=== PATIENT | male | born 1985 | race Caucasian/White ===

== ENCOUNTER 2017-09-13 09:18 | Emergency (ER) | payer BC, MEDICAID ==
[2017-09-13 09:52] VITALS: TEMP 98.4
--- NOTE | 2017-09-13 10:53 | C.PDOC ---
History Of Present Illness 32-year-old male, whose PMHx includes Bipolar Disorder, is brought to the ED by ambulance for evaluation of anxiety. Patient admits to drinking alcohol, smoking marijuana, using crystal meth and LSD prior to arrival and states he now feels nervous and anxious. Patient is not seeking detox. He denies fever, chills, chest pain, shortness of breath, abdominal pain, vomiting, suicidal/ homicidal ideation at this time. Time Seen by Provider: 09/13/17 09:57 Chief Complaint (Nursing): Anxiety History Per: Patient History/Exam Limitations: no limitations Onset/Duration Of Symptoms: Hrs Current Symptoms Are (Timing): Still Present Suicide/Self Injury Attempted (Context): None Modifying Factor(s): Alcohol, Other (marijuana, crystal meth, LSD) Associated Symptoms: Anxiety. denies: Suicidal Thoughts, Suicidal Plan Involuntary Hold By: None Recent travel outside of the [place]: No Additional History Per: Patient, EMS Past Medical History Reviewed: Historical Data, Nursing Documentation, Vital Signs Vital Signs: Last Vital Signs Temp 98.4 F 09/13/17 11:41 Pulse 92 H 09/13/17 11:41 Resp 18 09/13/17 11:41 BP 135/91 H 09/13/17 11:41 Pulse Ox 96 09/13/17 15:13 - Medical History PMH: Bipolar Disorder, Depression Surgical History: No Surg Hx Family History: States: Unknown Family Hx - Social History Hx Alcohol Use: Yes Hx Substance Use: Yes - Immunization History Hx Tetanus Toxoid Vaccination: No Hx Influenza Vaccination: No Hx Pneumococcal Vaccination: No Review Of Systems Psych: Positive for: Anxiety. Negative for: Suicidal ideation Physical Exam - Physical Exam Appears: Non-toxic, No Acute Distress, Other (anxious, pacing ) Skin: Normal Color, Warm, Dry Head: Atraumatic, Normacephalic Eye(s): bilateral: Normal Inspection, EOMI Nose: Normal Oral Mucosa: Moist Neck: Normal ROM, Supple Chest: Symmetrical, No Deformity, No Tenderness Cardiovascular: Rhythm Regular Respiratory: Normal Breath Sounds, No Rales, No Rhonchi, No Wheezing, Other ( speaking in full sentences) Gastrointestinal/Abdominal: Soft, No Tenderness Back: No Vertebral Tenderness Extremity: Normal ROM, Capillary Refill (less than 2 seconds ) Neurological/Psych: Oriented x3 Gait: Steady ED Course And Treatment O2 Sat by Pulse Oximetry: 96 (on RA) Pulse Ox Interpretation: Normal Progress Note: On re-examination, patient is resting comfortably, showing no signs of distress and reports an improvement in his symptoms. PT states, "I feel fine now, i want to go home. " Patient is tolerating PO intake and is stable for discharge with his friends, who will pick him up from the ED. Case discussed by Dr Sotoamyor, agreed upon plan and discharge. Disposition - Disposition Disposition: HOME/ ROUTINE Disposition Time: 10:52 Condition: STABLE Additional Instructions: When you are ready for detox, call [phone]. Instructions: Drug Abuse and Drug Addiction (DC) Forms: [facility] (Estonian) - Clinical Impression Clinical Impression: Drug abuse, Anxiety - PA / TELEPHONE SERVICE REPRESENTATIVE / Resident Statement MD/DO has reviewed & agrees with the documentation as recorded. - Scribe Statement The provider has reviewed the documentation as recorded by the Scribe (Thuy Mora) All medical record entries made by the Scribe were at my direction and personally dictated by me. I have reviewed the chart and agree that the record accurately reflects my personal performance of the history, physical exam, medical decision making, and the department course for this patient. I have also personally directed, reviewed, and agree with the discharge instructions and disposition.
[2017-09-13 11:42] VITALS: BP 135/91; PULSE 92; RESP 18
[2017-09-13 15:09] VITALS: O2SAT 96
== END 2017-09-13 11:46 | disposition home or self-care (01) ==
LOC: C.ER 09:18
DX: F41.9 Anxiety disorder, unspecified (principal); F19.10 Other psychoactive substance abuse, uncomplicated

== ENCOUNTER 2018-03-12 18:05 | Inpatient (IN) | payer MEDICAID ==
[2018-03-12] MEDS ORDERED: Naloxone 0.4 mg/ml Inj (Adult) ONE (18:40)
[2018-03-12] MEDS ORDERED: Naloxone 0.4 mg/ml Inj (Adult) IVP ONE (18:47)
--- NOTE | 2018-03-12 19:20 | C.PDOC ---
History Of Present Illness 32 year old male presents to the ER as a prescreen for heroin detox. Patient last used heroin one hour [employer], in the ER he is lethargic, 0.4 narcan administered, he is now alert and conscious. Denies any complaints at this time. Chief Complaint (Nursing): Substance Abuse History Per: Patient History/Exam Limitations: no limitations Onset/Duration Of Symptoms: Hrs Current Symptoms Are (Timing): Still Present Suicide/Self Injury Attempted (Context): None Modifying Factor(s): Other (Heroin) Associated Symptoms: denies: Depression, Suicidal Thoughts Involuntary Hold By: None Recent travel outside of the [place]: No Past Medical History Reviewed: Historical Data, Nursing Documentation, Vital Signs Vital Signs: Last Vital Signs Temp 98.2 F 03/12/18 18:19 Pulse 91 H 03/12/18 19:05 Resp 13 03/12/18 19:05 BP 115/61 03/12/18 19:05 Pulse Ox 96 03/12/18 19:05 - Medical History PMH: Bipolar Disorder, Depression Family History: States: Unknown Family Hx - Social History Hx Alcohol Use: Yes Hx Substance Use: Yes - Immunization History Hx Tetanus Toxoid Vaccination: No Hx Influenza Vaccination: No Hx Pneumococcal Vaccination: No Review Of Systems Constitutional: Negative for: Fever, Chills Cardiovascular: Negative for: Chest Pain, Palpitations Respiratory: Negative for: Cough, Shortness of Breath Gastrointestinal: Negative for: Nausea, Vomiting Neurological: Negative for: Weakness, Numbness Physical Exam - Physical Exam Appears: Non-toxic Skin: Normal Color, Warm, Dry Head: Atraumatic, Normacephalic Eye(s): bilateral: Normal Inspection Oral Mucosa: Moist Neck: Normal, Supple Chest: Symmetrical, No Tenderness Cardiovascular: Rhythm Regular Respiratory: Normal Breath Sounds, No Rales, No Rhonchi, No Wheezing Gastrointestinal/Abdominal: Soft, No Tenderness Back: No CVA Tenderness Extremity: Normal ROM (x4) Neurological/Psych: Oriented x3, Normal Speech, Other (No focal deficit) ED Course And Treatment - Laboratory Results Result Diagrams: 03/12/18 19:24 03/12/18 19:24 O2 Sat by Pulse Oximetry: 96 (room air) Pulse Ox Interpretation: Normal Progress Note: Blood work and urinalysis ordered. Narcan administered. Crisis notified. Disposition Discussed With : Miri Carrasco Doctor Will See Patient In The: Hospital Counseled Patient/Family Regarding: Diagnosis - Disposition Disposition: HOSPITALIZED Disposition Time: 01:01 Condition: STABLE Forms: [facility] (Pakistani) - POA Present On Arrival: None - Clinical Impression Clinical Impression: Opiate use - Scribe Statement The provider has reviewed the documentation as recorded by the Scribe Jun George All medical record entries made by the Scribe were at my direction and personally dictated by me. I have reviewed the chart and agree that the record accurately reflects my personal performance of the history, physical exam, medical decision making, and the department course for this patient. I have also personally directed, reviewed, and agree with the discharge instructions and di sposition.
[2018-03-12 19:31] LABS: BASO % 0.6 % (0.0-2.0); EOS # 0.2 K/uL (0.0-0.7); HEMOGLOBIN 14.3 g/dL (12.0-18.0); LYMPH # 2.1 K/uL (1.0-4.3); LYMPH % 26.8 % (20.0-40.0); MEAN CELL VOLUME 90.8 fL (80.0-94.0); MEAN CORPUSCULAR HEMOGLOBIN 31.5 pg (27.0-31.0); MEAN CORPUSCULAR HGB CONC 34.7 g/dL (33.0-37.0); MEAN PLATELET VOLUME 8.3 fL (7.2-11.7); MONO # 0.5 K/uL (0.0-0.8); MONO % 6.9 % (0.0-10.0); NEUT # 4.8 K/uL (1.8-7.0); NEUT % 62.7 % (50.0-75.0); RBC 4.55 Mil/uL (4.40-5.90); RED CELL DISTRIBUTION WIDTH 12.5 % (11.5-14.5); WHITE BLOOD COUNT 7.6 K/uL (4.8-10.8)
[2018-03-12 19:53] LABS: ALB/GLOB RATIO 1.7 (1.0-2.1); ALBUMIN 4.7 g/dL (3.5-5.0); ALT/SGPT 76 U/L (21-72); AST/SGOT 65 U/L (17-59); BLOOD UREA NITROGEN 24 mg/dL (9-20); CALCIUM 9.2 mg/dl (8.6-10.4); GFR NON-AFRICAN AMERICAN > 60
[2018-03-12 22:21] LABS: BARBITURATES, UR NEGATIVE (NEGATIVE); BENZODIAZEPINES, UR NEGATIVE (NEGATIVE); OPIATES, UR NEGATIVE (NEGATIVE); PHENCYCLIDINE, UR NEGATIVE (NEGATIVE)
[2018-03-12 22:58] LABS: URINE BACTERIA RARE (<OCC); URINE BILIRUBIN NEGATIVE (NEGATIVE); URINE BLOOD NEGATIVE (NEGATIVE); URINE CLARITY Clear (Clear); URINE COLOR Yellow (YELLOW); URINE GLUCOSE (UA) NORMAL (Normal); URINE LEUKOCYTE ESTERASE NEG Leu/uL (Negative); URINE PROTEIN NEGATIVE (NEGATIVE); URINE UROBILINOGEN NORMAL mg/dL (0.2-1.0)
[2018-03-12 23:41] LABS: SQUAMOUS EPITHIAL < 1 /hpf (0-5); URINE BILIRUBIN NEGATIVE (NEGATIVE); URINE BLOOD NEGATIVE (NEGATIVE); URINE CLARITY Clear (Clear); URINE COLOR Yellow (YELLOW); URINE GLUCOSE (UA) NORMAL (Normal); URINE LEUKOCYTE ESTERASE NEG Leu/uL (Negative); URINE PROTEIN NEGATIVE (NEGATIVE)
[2018-03-13 00:02] LABS: BARBITURATES, UR NEGATIVE (NEGATIVE); BENZODIAZEPINES, UR NEGATIVE (NEGATIVE); PHENCYCLIDINE, UR NEGATIVE (NEGATIVE)
[2018-03-13 00:32] LABS: OPIATES, UR POSITIVE (NEGATIVE)
--- NOTE | 2018-03-13 03:44 | PCM.BM ---
<David Herrera - Last Filed: 03/13/18 03:42> Treatment Plan Problems - Problems identified on initial assessmt Opiates Abuse Date Initiated: 03/13/18 Time Initiated: 01:45 Assessment reference: NA Status: Active Treatment assets and liabiliti Patient Assests: resourceful, physically healthy, good support system Patient Liabilities: relationship conflicts, substance abuse (Opiates, Amphetamines) - Milieu Protocol Maintain good personal hygiene: daily Encourage regular showers, daily Remind patient to perform daily oral care, every shift Assist patient to perform ADL's Conduct patient checks and document Observation sheet: Q15 minutes Maintain personal safety: every shift Educate patient to report safety concerns to staff, every shift Monitor environment for contraband/sharps Medication safety: Monitor for expected outcome, potential side effects: every shift, Assess barriers to learning: every shift, Assess readiness for medication education: every shift <Miri Carrasco - Last Filed: 03/13/18 13:15> - Diagnosis (1) Methamphetamine use disorder, severe Status: Acute Interventions: 03/13/18 13:16 * Assess 7x/week regarding severity of withdrawal * Educate regarding risks, benefits, side effects and alternatives of medications * Use Motivational Interviewing for abstinence * Use CBT for relapse prevention * Medication management for withdrawal symptoms * Encourage medication assisted treatment * (2) Opiate use Status: Acute Interventions: 03/13/18 13:16 * Assess 7x/week regarding severity of withdrawal * Educate regarding risks, benefits, side effects and alternatives of medications * Use Motivational Interviewing for abstinence * Use CBT for relapse prevention * Medication management for withdrawal symptoms * Encourage medication assisted treatment * <Niru Knox - Last Filed: 03/13/18 13:33> Family Contact Family involvement: Family/SO is involved Family contact name: AA sponsor Family contacted how many times per week?: 2 - Goals for Treatment Patient goals for treatment: Complete detox and discuss aftercare options with counseling staff and AA sponsor. Discharge/Continuing Care - Education Needs Education Needs: Patient Medication, Patient Diagnosis/Disease Process, Patient Coping Skills, Patient Anger Management skills, Patient Placement options, Patient Community resources, Patient Health Practices/Safety (overdose risks) - Discharge Discharge Criteria: No longer exhibiting s/s of withdrawal, Reduction of target symptoms Discharge to:: Other - Additional Comments 03/13/18 13:33 To Be Determined. Pt. is unsure as of this writing. - Treatment Team Participation Patient/Family/SO Statement: 03/13/18 13:33 "I don't know what I wanna do. I'll do whatever my sponsor says..." Discussed with Family/SO: No Was Patient/Family/SO present at Treatment Team Meeting: Yes
[2018-03-13] MEDS ORDERED: Aluminum Hydroxide/Magnesium Hydroxide Susp (30 mL) PO PRN (09:58)
--- NOTE | 2018-03-13 13:24 | PCM.PSYCH ---
Initial Psychiatric Evaluation - Initial Psychiatric Evaluation Type of Admission: Voluntary Legal Status: Capacity Chief Complaint (in patient's own words): "detox" History of Present Illness and Precipitating Events: the patient is seen, chart reviewed and case discussed. This is a 22-year-old [place] male, single with no child, lives alone, works in real estate. The patient came to ER with a friend for admission for heroin detox as well as excessive crystal meth use. The patient reports that his been using heroin for the past 15 years and he averages around 15 bags, IV, and last night he had to be Narcan'ed because he was in OD. He admits to having had 4 or 5 ODs in the past he was also in detox and rehabilitation more than 15 times and last time was in September. Patient reports that he was in a long-term rehabilitation and that the longest sobriety he had was about 10 months few years ago in [facility]. Patient also uses methamphetamine, Xanax on and off, alcohol "a lot" and he had used many others in the past. He denies DTs or seizures from alcohol withdrawal but he reports significant withdrawal symptoms. He is not sure about his average because he drinks "a lot." Past psych history: He was diagnosed with bipolar disorder and had been hospitalized "many times" but the last time was several years ago. He currently feels irritable but not manicky. He denies suicidal ideation. He had one suicide "long ago" Family psych history: Denied Medical history: Denied Current Medications: Active Medications Generic Name Dose Route Start Last Admin Trade Name Freq PRN Reason Stop Dose Admin Al Hydrox/Mg Hydrox/Simethicone 30 ml 03/13/18 09:58 Maalox 30 Ml PO TID PRN Indigestion / Heartburn Clonidine HCl 0.1 mg 03/13/18 01:58 Catapres PO Q6 PRN s/s of withdrawal cows=5 Dicyclomine HCl 10 mg 03/13/18 01:52 Bentyl PO Q6 PRN Muscle spasm Gabapentin 300 mg 03/13/18 10:00 03/13/18 10:32 Neurontin PO 300 mg BID LYDIA Administration Hydroxyzine HCl 25 mg 03/13/18 01:51 Atarax PO Q6 PRN Anxiety Ibuprofen 600 mg 03/13/18 01:51 Motrin Tab PO Q6 PRN Pain, moderate (4-7) Influenza Virus Vaccine 60 mcg 03/16/18 10:00 Fluzone Quad [id number] IM 03/16/18 10:01 .ONCE ONE Loperamide HCl 2 mg 03/13/18 09:58 Imodium PO Q8 PRN Diarrhea Ondansetron HCl 4 mg 03/13/18 01:52 Zofran Tab PO Q6 PRN Nausea/Vomiting Ondansetron HCl 4 mg 03/13/18 14:00 Zofran Tab PO Q8 PRN Nausea/Vomiting Pneumococcal Polyvalent Vaccine 0.5 ml 03/16/18 10:00 Pneumovax 23 Vaccine IM 03/16/18 10:01 .ONCE ONE Quetiapine Fumarate 50 mg 03/13/18 02:15 03/13/18 10:32 Seroquel PO 50 mg DAILY LYDIA Administration Trazodone HCl 50 mg 03/13/18 01:53 Desyrel PO HS PRN Insomnia Past Psychiatric History - Past Psychiatric History Previous Treatment History: Intensive Outpatient Pertinent Medical Hx (Current Medical&Sleep Prob, Allergies): Allergies Allergy/AdvReac Type Severity Reaction Status Date / Time carbamazepine [From Tegretol] Allergy Verified 03/12/18 18:25 No Known Home Med 09/13/17 Review of Systems - Neurological Neurological: Tremor - Psychiatric Psychiatric: Abnormal Sleep Pattern, Anxiety, Depression, Difficulty Concentrating, Irritability. absent: Hallucinations, Homicidal Ideation, Suicidal Ideation Mental Status Examination - Personal Presentation Personal Presentation: Looks stated age - Affect Affect: Constricted - Motor Activity Motor Activity: Calm - Reliability in Providing Information Reliability in Providing Information: Good - Speech Speech: Organized - Mood Mood: Anxious - Formal Thought Process Formal Thought Process: No Impairment - Cognitive Functions Orientation: Person, Place, Situation, Time Sensorium: Alert Attention/Concentration: Easily distracted Estimate of Intelligence: Average Judgement: Intact, as evidence by: Insight regarding need for hospitalization Memory: Recent intact, as evidence by: Ability to recall events of the day, Rem ote intact, as evidenced by: Abilit to recall sig. life events - Risk Risk: Withdrawal, Diminished functioning - Strength & Assets Inventory Strength & Assets Inventory: Cooperative - Limitations Limitations: Living alone, Other DSM 5 DX - DSM 5 DSM 5 Diagnosis: opioid withdrawal Opioid use disorder, severe Methamphetamine use disorder, severe Alcohol use disorder, severe Sedative hypnotic or anxiolytic use disorder, moderate Bipolar disorder unspecified Personality disorder, unspecified - Recommended/Plan of Treatment Treatment Recommendations and Plan of Treatment: Taper with methadone and librium HIV testing per his request Gabapentin for augmentation As needed medications All risks, benefits and alternatives of the meds discussed, and the pt agreed and understood. Attend groups and activities Supportive therapy and psychoeducation [place] for abstinence CBT for relapse prevention Encourage MAT Refer to rehab or IOP, and self-help groups Teach healthy lifestyle methods, i.e. diet, exercise, meditation Smoking cessation with [place] Nicotine patch if needed 34 min Projected ELOS: 4 - 5 days Prognosis: good with treatment
[2018-03-15] MEDS ORDERED: Benzocaine/Menthol (Cepacol) Lozenge MT PRN (11:12)
[2018-03-15] MEDS ORDERED: guaiFENesin 200 mg/10 ml Syrup UD PO PRN (11:12)
--- NOTE | 2018-03-15 13:18 | PCM.PYCHPN ---
Psychiatric Progress Note - Psychiatric Progress Note Patient seen today, length of contact: `15 min Patient Chief Complaint: "I am not well" Problems Identified/Issues Discussed: The pt is seen, chart reviewed, case discussed with staff. The pt is compliant with medications and reports no side-effects. Symptoms are improving but needs more time to stabilize. He was in withdrawal (COWS>8) and methadone (his choice - vs. subutex) started Pt attends groups and activities. Support given, psycho-education provided. After care discussed. Medication Change: Yes (detox changes daily) Medical Record Reviewed: Yes Mental Status Examination - Cognitive Function Orientation: Person, Place, Situation, Time Memory: Intact Attention: WNL Concentration: Poor Association: WNL Fund of Knowledge: WNL - Mood Mood: Anxious - Affect Affect: Constricted - Speech Speech: Appropriate - Formal Thought Process Formal Thought Process: No Impairment - Suicidal Ideation Suicidal Ideation: No - Homicidal Ideation Homicidal Ideation: No Goal/Treatment Plan - Goal/Treatment Plan Need for Continued Stay: Discharge may exacerbated symptoms, Severe functional impairment Progress Toward Problem(s) and Goals/Treatment Plan: Taper with methadone and librium if needed HIV testing per his request Gabapentin for augmentation As needed medications All risks, benefits and alternatives of the meds discussed, and the pt agreed and understood. Attend groups and activities Supportive therapy and psychoeducation [place] for abstinence CBT for relapse prevention Encourage MAT Refer to rehab or IOP, and self-help groups Teach healthy lifestyle methods, i.e. diet, exercise, meditation Smoking cessation with [place] Nicotine patch if needed
[2018-03-16] MEDS ORDERED: Pneumococcal 23-Valent Vaccine IM ONE (10:00)
[2018-03-16] MEDS ORDERED: Influenza Vaccine 60 MCG/0.5 ML SYR (3 yr & up) IM ONE (10:00)
--- NOTE | 2018-03-16 23:11 | PCM.PYCHPN ---
Psychiatric Progress Note - Psychiatric Progress Note Patient seen today, length of contact: `15 min Patient Chief Complaint: "I am not well" Problems Identified/Issues Discussed: The pt is seen, chart reviewed, case discussed with staff. The pt is compliant with medications and reports no side-effects. Symptoms are improving but needs more time to stabilize. He was in withdrawal (COWS>8) and methadone (his choice - vs. subutex) started Pt attends groups and activities. Support given, psycho-education provided. After care discussed. Medication Change: Yes (detox changes daily) Medical Record Reviewed: Yes Mental Status Examination - Cognitive Function Orientation: Person, Place, Situation, Time Memory: Intact Attention: WNL Concentration: Poor Association: WNL Fund of Knowledge: WNL - Mood Mood: Anxious - Affect Affect: Constricted - Speech Speech: Appropriate - Formal Thought Process Formal Thought Process: No Impairment - Suicidal Ideation Suicidal Ideation: No - Homicidal Ideation Homicidal Ideation: No Goal/Treatment Plan - Goal/Treatment Plan Need for Continued Stay: Discharge may exacerbated symptoms, Severe functional impairment Progress Toward Problem(s) and Goals/Treatment Plan: Taper with methadone and librium if needed HIV testing per his request Gabapentin for augmentation As needed medications All risks, benefits and alternatives of the meds discussed, and the pt agreed and understood. Attend groups and activities Supportive therapy and psychoeducation [place] for abstinence CBT for relapse prevention Encourage MAT Refer to rehab or IOP, and self-help groups Teach healthy lifestyle methods, i.e. diet, exercise, meditation Smoking cessation with [place] Nicotine patch if needed
[2018-03-17 06:28] VITALS: O2SAT 96
--- NOTE | 2018-03-17 08:53 | PCM.PYCHDC ---
Mental Status Examination - Mental Status Examination Orientation: Person Discharge Summary - Discharge Note Consultations:: List each consultation separately and include: 1. Reason for request. 2. Findings. 3. Follow-up Summary of Hospital Course include:: 1. Description of specific treatment plan utilized for patients during their course of treatmen. 2. Summarize the time- course for resolution of acute symptoms and/or regressed behaviors. 3. Describe issues identified and worked on during hospitalization. 4. Describe medication utilized. 5. Describe medical problems identified and treated. 6. Reassessment of suicide risk Summary of Hospital Course: the patient is seen, chart reviewed and case discussed. 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 The patient reports that his been using heroin for the past 15 years and he averages around 15 bags, IV, and last night he had to be Narcan'ed because he was in OD. He admits to having had 4 or 5 ODs in the past he was also in detox and rehabilitation more than 15 times and last time was in September. Patient reports that he was in a long-term rehabilitation and that the longest sobriety he had was about 10 months few years ago in [facility]. Patient also uses methamphetamine, Xanax on and off, alcohol "a lot" and he had used many others in the past. He denies DTs or seizures from alcohol withdrawal but he reports significant withdrawal symptoms. He is not sure about his average because he drinks "a lot." Past psych history: He was diagnosed with bipolar disorder and had been hospitalized "many times" but the last time was several years ago. He currently feels irritable but not manicky. He denies suicidal ideation. He had one suicide "long ago" Family psych history: Denied Medical history: Denied He will go to - risks of poor follow up discussed. - Diagnosis (1) Methamphetamine use disorder, severe Current Visit: Yes Status: Acute (2) Opiate use Current Visit: Yes Status: Acute - Final Diagnosis (DSM 5) Condition upon Discharge: STABLE Disposition: HOME/ ROUTINE Follow-up Treatment Plan: Taper with methadone and librium if needed HIV testing per his request Gabapentin for augmentation As needed medications All risks, benefits and alternatives of the meds discussed, and the pt agreed and understood. Attend groups and activities Supportive therapy and psychoeducation [place] for abstinence CBT for relapse prevention Encourage MAT Refer to rehab or IOP, and self-help groups Teach healthy lifestyle methods, i.e. diet, exercise, meditation Smoking cessation with [place] Nicotine patch if needed Prescriptions/Medication Reconciliation: Escitalopram [Lexapro] 10 mg PO DAILY #30 tab Gabapentin [Neurontin] 300 mg PO TID #90 cap hydrOXYzine HCl [Atarax] 25 mg PO BID PRN #60 tab PRN Reason: Anxiety QUEtiapine [SEROquel] 50 mg PO HS #30 tab traZODone [Desyrel] 50 mg PO HS PRN #30 tab PRN Reason: Insomnia
[2018-03-17 10:03] VITALS: BP 92/68; PULSE 66; RESP 18; TEMP 97.6
== END 2018-03-17 09:30 | disposition home or self-care (01) | DRG 745 ==
LOC: C.ER 18:05 → C.7D 03-13 01:02
PROVIDERS: ADMIT Psychiatry & Neurology Psychiatry; ATTEND Psychiatry & Neurology Psychiatry
PROC: HZ52ZZZ Individual Psychotherapy for Substance Abuse Treatment, Cognitive-Behavioral (ICD-10-PCS; principal; 2018-03-13)
PROC: HZ2ZZZZ Detoxification Services for Substance Abuse Treatment (ICD-10-PCS; 2018-03-13)
PROC: HZ59ZZZ Individual Psychotherapy for Substance Abuse Treatment, Supportive (ICD-10-PCS; 2018-03-13)
PROC: HZ56ZZZ Individual Psychotherapy for Substance Abuse Treatment, Psychoeducation (ICD-10-PCS; 2018-03-13)
PROC: HZ42ZZZ Group Counseling for Substance Abuse Treatment, Cognitive-Behavioral (ICD-10-PCS; 2018-03-13)
PROC: HZ46ZZZ Group Counseling for Substance Abuse Treatment, Psychoeducation (ICD-10-PCS; 2018-03-13)
PROC: GZHZZZZ Group Psychotherapy (ICD-10-PCS; 2018-03-13)
PROC: GZ58ZZZ Individual Psychotherapy, Cognitive-Behavioral (ICD-10-PCS; 2018-03-13)
PROC: GZ56ZZZ Individual Psychotherapy, Supportive (ICD-10-PCS; 2018-03-13)
DX: F11.23 Opioid dependence with withdrawal (principal); F10.20 Alcohol dependence, uncomplicated; F13.20 Sedative, hypnotic or anxiolytic dependence, uncomplicated; F15.20 Other stimulant dependence, uncomplicated; F31.9 Bipolar disorder, unspecified; F60.9 Personality disorder, unspecified